=== PATIENT | female | born 1985 | race Caucasian/White ===

== ENCOUNTER 2020-04-25 05:30 | Day surgery (SDC) | payer BC ==
[2020-04-22 09:29] LABS: HEMATOCRIT 41.8 % (36.0-47.0); HEMOGLOBIN 14.2 g/dL (12.0-15.5); MEAN CORPUSCULAR HEMOGLOBIN 29.6 pg (27.0-33.4); MEAN CORPUSCULAR HGB CONC 34.1 g/dL (32.0-36.0); MEAN CORPUSCULAR VOLUME 87 fl (80-97); PLATELET COUNT 210 10^3/uL (150-450); RED BLOOD COUNT 4.81 10^6/uL (3.72-5.28); RED CELL DISTRIBUTION WIDTH 13.2 % (11.5-14.0); WHITE BLOOD COUNT 4.7 10^3/uL (4.0-10.5)
[2020-04-22 09:30] LABS: APPEARANCE,URINE CLEAR; BILIRUBIN,URINE NEGATIVE (NEGATIVE); COLOR,URINE YELLOW; GLUCOSE, URINE NEGATIVE (NEGATIVE); KETONES,URINE NEGATIVE (NEGATIVE); LEUKOCYTE ESTERASE,URINE NEGATIVE (NEGATIVE); NITRITE,URINE NEGATIVE (NEGATIVE); PROTEIN,URINE NEGATIVE (NEGATIVE); URINE SPECIFIC GRAVITY 1.023; UROBILINOGEN,URINE NEGATIVE mg/dL (<2.0)
[2020-04-22 09:54] LABS: ANION GAP 10 (5-19); BLOOD UREA NITROGEN 17 mg/dL (7-20); CALCIUM 9.5 mg/dL (8.4-10.2); CARBON DIOXIDE 27 mmol/L (22-30); CHLORIDE 102 mmol/L (98-107); GLUCOSE 85 mg/dL (75-110); POTASSIUM 3.8 mmol/L (3.6-5.0)
[~2020-04-25 05:30] MED LIST: CEFAZOLIN 1 GM/D5W RTU 1 GM/50 ML RTUPB IV PRN; DEXAMETHASONE SOD PHOSPHATE INJ 4 MG/1 ML VIAL ONE; GLYCOPYRROLATE 1 MG/5 ML VIAL ONE; LACTATED RINGERS 1000 ML IV PRN; LIDOCAINE 0.5% INJ-PF (5 MG/ML) 50 ML SDV SUBCUT PRN; NEOSTIGMINE METHYLSULFATE 10 MG/10 ML VIAL ONE; ONDANSETRON HCL INJ/PF 4 MG/2 ML SDV ONE; ROCURONIUM BROMIDE INJ 50 MG/5 ML VIAL IV ONE
[2020-04-25] MEDS ORDERED: CEFAZOLIN 1 GM/D5W RTU 1 GM/50 ML RTUPB IV ONE (05:38)
[2020-04-25] MEDS ORDERED: PROPOFOL INJ 200 MG/20 ML VIAL IV ONE (06:59)
[2020-04-25] MEDS ORDERED: MIDAZOLAM 2 MG/2 ML INJ ONE (06:59)
[2020-04-25] MEDS ORDERED: FENTANYL CITRATE INJ/PF 100 MCG/2 ML AMPUL ONE ×2 (06:59→08:32)
[2020-04-25] MEDS ORDERED: LIDOCAINE 1% INJ-PF (10 MG/ML) 30 ML SDV ONE (07:41)
[2020-04-25] MEDS ORDERED: DIPHENHYDRAMINE HCL 50 MG/ML VIAL IV PRN (07:49)
[2020-04-25] MEDS ORDERED: MEPERIDINE HCL/PF INJ 25 MG/1 ML DISP.SYRIN IV PRN (07:49)
[2020-04-25] MEDS ORDERED: PROMETHAZINE HCL INJ 25 MG/1 ML VIAL IV PRN (07:49)
[2020-04-25] MEDS ORDERED: MORPHINE SULFATE 10 MG/ML INJ IV PRN (07:49)
[2020-04-25] MEDS ORDERED: FENTANYL CITRATE INJ/PF 100 MCG/2 ML AMPUL IV PRN ×3 (07:49)
[2020-04-25] MEDS ORDERED: OXYCODONE-ACETAMINOPHEN 5-325 MG TABLET PO PRN (09:01)
[2020-04-25] MEDS ORDERED: PROMETHAZINE HCL INJ 25 MG/1 ML VIAL IM PRN (09:06)
[2020-04-25] MEDS ORDERED: MORPHINE SULFATE 10 MG/ML INJ INJ PRN (09:06)
--- NOTE | 2020-04-25 09:14 | Operative Report ---
Operative Report DATE OF SURGERY: 04/25/20 PREOPERATIVE DIAGNOSIS: Desires sterilization POSTOPERATIVE DIAGNOSIS: Name OPERATION: Laparoscopic Filshie clip sterilization SURGEON: ZEYNEP MOORE ANESTHESIA: GA TISSUE REMOVED OR ALTERED: None COMPLICATIONS: None INTRAOPERATIVE FINDINGS: Normal-appearing uterus and ovaries. Marked amount of scar tissue was noted on the right adnexal area precluding classic anatomy.. The left adnexa appeared to be normal. The round ligament was identified on the right and and a adhesion was noted on the right and after adequate observation the tube was identified involved with the right ovary. I discussed these findings with the and postoperative HSG will be instituted PROCEDURE: The usual risks, benefits, expectations and complications of bleeding, infection, anesthesia and damage to other organs have been explaed and understood. No guarantee of permanent sterilization have been made with a risk of of about 1/150/10 years with this procedure. After surgical time out, exam under anesthesia, hulka tenaculum placed, and bladder catheterization ensued. The surgeon re-gloved and via an infraumbilical incision thru the subq fat and fascia, the peritoneum was encountered and entered uneventfully. Orgin cannula placed and inflated. The pelvis and upper abdomen was examined, a second 5 mm port placed 3 fingerbreadths above symphysis under direct visualization, the tubes identified in their entirety and filshie clips placed on the antimesenteric side 1 cm from the uterine fundus bilaterally. The gas and instruments were removed, Fasci closed with O vicryl, subq with 3O gut
[2020-04-25] MEDS ORDERED: IBUPROFEN 800 MG TABLET ONE (09:15)
[2020-04-25] MEDS ORDERED: ONDANSETRON HCL INJ/PF 4 MG/2 ML SDV ONE (09:15)
[2020-04-25] MEDS ORDERED: IBUPROFEN 800 MG TABLET PO SCH (10:00)
[2020-04-25] MEDS ORDERED: ONDANSETRON HCL INJ/PF 4 MG/2 ML SDV IV ONE (11:30)
[2020-04-25 12:20] VITALS: BP 127/86
== END 2020-04-25 10:30 | disposition home or self-care (01) ==
LOC: OROUT 05:30
PROVIDERS: ATTEND Specialist
DX: Z30.2 Encounter for sterilization (principal); Z03.818 Encounter for observation for suspected exposure to other biological agents ruled out
CPT/HCPCS: 86900; 86901; 36415; 86850; 85027; 81025; 80048; 81001; 58671; U0003; J2250; J0690; J3490 ×3; J1100; J3010; J2710; J2405; J2704; C9803; 87635

== ENCOUNTER → 2020-06-03 | Outpatient (CLI) | payer BC ==
--- NOTE | 2020-06-03 16:47 | RADIOLOGY REPORT (SQ) ---
EXAM DESCRIPTION: HYSTEROSALPINGOGRAM; HYSTERO CATH/INJECTION IMAGES COMPLETED DATE/TIME: 06/03/2020 1:51 pm REASON FOR STUDY: ENCOUNTER FOR STERILIZATION Z30.2 ENCOUNTER FOR STERILIZATION COMPARISON: None. PROCEDURE: PRE-PROCEDURE: Procedure was explained to the patient. She was told to expect cramping du ring the procedure, and possible spotting post procedure. PROCEDURE: The cervix was prepped in sterile fashion. Under direct visual inspection, the cervix was cannulated with the hysterosalpingogram catheter and contrast injected. TECHNIQUE: Temporal fluoroscopic images acquired during the procedure stored to PACS. FLUOROSCOPY TIME: 19 seconds. 10 images saved to PACS. LIMITATIONS: None. FINDINGS: UTERUS: No identified anomalies. No synechia. RIGHT ADNEXA: Normal size fallopian tube. Occluded at the ligation clip. LEFT ADNEXA: Normal size fallopian tube. Occluded at the ligation clip. POST PROCEDURE: The patient tolerated the procedure with no adverse effects. IMPRESSION: BILATERAL TUBAL LIGATION. BOTH FALLOPIAN TUBES ARE OCCLUDED AT THE LEVEL OF THE CLIPS. COMMENT: Study performed and interpreted by the radiologist. Quality ID [id number]: Final reports for procedures using fluoroscopy that document radiation exposure leeann keli, or exposure time and number of fluorographic images (if radiation exposure indices are not avail able) TECHNICAL DOCUMENTATION: JOB ID: [id number] 2010 [employer]- All Rights Reserved Reading location - IP/workstation name: [email or web address]
== END ==
LOC: RAD 12:57
PROVIDERS: ATTEND Specialist
DX: Z30.2 Encounter for sterilization (principal)
CPT/HCPCS: 58340; 74740